=== PATIENT | female | born 1960 | race Caucasian/White ===

== ENCOUNTER → 2018-12-17 | Outpatient (CLI) | payer BC ==
[2018-12-17 10:05] LABS: Basophils # (A) 0.1 k/uL (0-0.2); Basophils % (A) 1 %; Eosinophils # (A) 0.2 k/uL (0-0.7); Eosinophils % (A) 3 %; HCT 43.8 % (34.0-46.0); HGB 14.5 gm/dL (11.4-16.0); Lymphocytes # (A) 1.6 k/uL (1.0-4.8); Lymphocytes % (A) 31 %; MCH 31.7 pg (25.0-35.0); MCHC 33.2 g/dL (31.0-37.0); MCV 95.5 fL (80.0-100.0); Mean Platelet Volume 8.1; Monocytes # (A) 0.3 k/uL (0-1.0); Monocytes % (A) 5 %; Neutrophils # (A) 2.9 k/uL (1.3-7.7); Neutrophils % (A) 57 %; Platelet Count 196 k/uL (150-450); RBC 4.58 m/uL (3.80-5.40); RDW 12.9 % (11.5-15.5); WBC 5.1 k/uL (3.8-10.6)
[2018-12-17 10:23] LABS: Prothrombin Time 10.8 sec (9.0-12.0)
[2018-12-17 10:33] LABS: ALT 51 U/L (9-52); AST 33 U/L (14-36); African American GFR (CKD) >90 (>60 ml/min/1.73 sqM); Albumin 4.5 g/dL (3.5-5.0); Alkaline Phosphatase 85 U/L (38-126); Anion Gap 9 mmol/L; Blood Urea Nitrogen 12 mg/dL (7-17); Calcium 9.8 mg/dL (8.4-10.2); Carbon Dioxide 26 mmol/L (22-30); Chloride 106 mmol/L (98-107); Glucose 136 mg/dL (74-99); Potassium 4.3 mmol/L (3.5-5.1); Sodium 141 mmol/L (137-145); Total Bilirubin 0.6 mg/dL (0.2-1.3); Total Protein 7.6 g/dL (6.3-8.2)
--- NOTE | 2018-12-17 13:21 | US ---
EXAMINATION TYPE: US abdomen complete DATE OF EXAM: 12/17/2018 COMPARISON: NONE CLINICAL HISTORY: R74.8 Elevated liver enzymes. EXAM MEASUREMENTS: Liver Length: 17.0 cm Gallbladder Wall: 0.2 cm CBD: 0.5 cm Spleen: 10.3 cm Right Kidney: 10.0 x 3.7 x 4.7 cm Left Kidney: 10.3 x 4.9 x 4.9 cm Pancreas: Obscured by bowel gas, visualized portions appear wnl Liver: Coarse, heterogeneous echotexture Gallbladder: wnl Evidence for sonographic Sam's sign: No CBD: wnl Spleen: wnl Right Kidney: No hydronephrosis or masses seen Left Kidney: No hydronephrosis or masses seen. Probable non-obstructing foci visualized measuring 0. 4 cm Upper IVC: wnl Abd Aorta: wnl There is no ascites. The liver is heterogeneous. The intrahepatic portion of the IVC and proximal abdominal aorta are wit hin normal limits. There is no evidence of cholelithiasis. Common bile duct is unremarkable. The v isualized portions of the pancreas are homogenous. The spleen is unremarkable. Kidneys are symmetri c and free of hydronephrosis, cortical medullary differentiation maintained. No renal lesions are se en. IMPRESSION: Findings may be due to hepatic steatosis, hepatocellular disease.
[2018-12-17 16:07] LABS: Iron Saturation 48.19 (12.00-45.00)
[2018-12-17 16:12] LABS: Alpha Fetoprotein, Tumor Mkr 5.5 ng/mL (0.0-7.9)
[2018-12-17 16:37] LABS: Protein, Total 6.5 g/dL (6.2-8.2)
[2018-12-17 17:49] LABS: Hemoglobin A1C 6.8 % (4.0-6.0)
[2018-12-18 11:35] LABS: Liver/Kidney Microsome Antibod 1.3 UNITS (<=20)
[2018-12-18 12:46] LABS: Alpha 1 Antitrypsin 56.4 mg/dL (99.0-242.0)
[2018-12-18 13:05] LABS: Albumin 3.74 g/dL (3.80-4.90); Gamma Globulin 1.09 g/dL (0.70-1.50)
== END | disposition home or self-care (01) ==
LOC: RADUSWWP 08:50
PROVIDERS: ATTEND Internal Medicine
DX: R74.8 Abnormal levels of other serum enzymes (principal); E11.9 Type 2 diabetes mellitus without complications
CPT/HCPCS: 76700; 80053; 82103; 82105; 82390; 82728; 83036; 83516; 83540; 83550; 84165; 84466; 85025; 85610; 86038; 86376

== ENCOUNTER → 2019-03-04 | Outpatient (CLI) | payer BC ==
[2019-03-06 13:06] LABS: Alpha 1 Anti-Trypsin 56 mg/dL (90 - 200); Alpha-1-Antitrypsin Phenotype SZ
== END | disposition home or self-care (01) ==
LOC: LABWHC1 13:49
PROVIDERS: ATTEND Internal Medicine
DX: R74.8 Abnormal levels of other serum enzymes (principal)
CPT/HCPCS: 36415; 82103; 82104